=== PATIENT | male | born 1960 | race Caucasian/White ===

== ENCOUNTER 2022-02-04 15:10 | Emergency (ER) | payer OTHER ==
[~2022-02-04] VITALS: Ht 190.5 cm; Wt 93.0 kg
[2022-02-04] MEDS ORDERED: DEXAMETHASONE SOD PHOSPHATE 4 MG INJ IM ONE (17:00)
[2022-02-04] MEDS ORDERED: diphenhydrAMINE 50 MG CAPSULE PO ONE (17:00)
[2022-02-04] MEDS ORDERED: DEXAMETHASONE SOD PHOSPHATE 10 MG INJ ONE (17:35)
[2022-02-04] MEDS ORDERED: diphenhydrAMINE 25 MG CAP PO ONE (17:35)
--- NOTE | 2022-02-04 18:08 | NUR ---
PT SEEN AND EVALUATED BY DR MONROE. MEDICATED PER MD ORDER.
[2022-02-04 18:09] VITALS: BP 142/82
== END 2022-02-04 17:55 | disposition home or self-care (01) ==
LOC: ER 15:10
DX: R21 Rash and other nonspecific skin eruption (principal); K21.9 Gastro-esophageal reflux disease without esophagitis; E78.5 Hyperlipidemia, unspecified; Z88.6 Allergy status to analgesic agent
CPT/HCPCS: 99283; 96372; Q0163; J1100; A4663

== ENCOUNTER 2024-06-30 15:05 | Emergency (ER) | payer OTHER ==
[~2024-06-30] VITALS: Ht 190.5 cm; Wt 93.0 kg
[2024-06-30] MEDS ORDERED: ASPI81TA31 PO (15:33)
[2024-06-30] MEDS ORDERED: ROSU10TA2 PO (15:33)
[2024-06-30] MEDS ORDERED: FINA1TAB PO (15:33)
[2024-06-30] MEDS ORDERED: APIX5TAB PO (15:33)
[2024-06-30] MEDS ORDERED: PANT20TA2 PO (15:33)
[2024-06-30 16:25] VITALS: BP 107/60; O2SAT 98
== END 2024-06-30 16:26 | disposition home or self-care (01) ==
LOC: ER 15:13
DX: M25.061 Hemarthrosis, right knee (principal); K21.9 Gastro-esophageal reflux disease without esophagitis; E78.5 Hyperlipidemia, unspecified; Z79.01 Long term (current) use of anticoagulants; Z79.82 Long term (current) use of aspirin; Z79.899 Other long term (current) drug therapy; Z88.5 Allergy status to narcotic agent; Z88.6 Allergy status to analgesic agent; Z86.79 Personal history of other diseases of the circulatory system; Z60.2 Problems related to living alone
CPT/HCPCS: A4606; A4663